=== PATIENT | female | born 1995 | race Caucasian/White ===

== ENCOUNTER 2023-11-13 23:10 | Emergency (ER) | payer BC, MEDICAID ==
[~2023-11-13] VITALS: Ht 162.6 cm; Wt 70.0 kg
[2023-11-13] MEDS: DIPHENHYDRAMINE 50MG/ML VIAL IM ONE (23:30)
[2023-11-13] MEDS: HALOPERIDOL LACTATE 5MG/ML VIAL IM ONE (23:30)
[2023-11-13] MEDS: LORAZEPAM 2MG/ML INJ IM ONE (23:45)
[2023-11-13] MEDS ORDERED: HALOPERIDOL LACTATE 5MG/ML VIAL IM NR (23:45)
[2023-11-14] MEDS ORDERED: MIDAZOLAM HCL 2 MG/2 ML VIAL IM ONE (00:15)
[2023-11-14] MEDS: MIDAZOLAM HCL 2 MG/2 ML VIAL IM NR (00:30)
[2023-11-14 01:31] LABS: BASOPHILS % 0.3 % (0.0-2.0); EOSINOPHILS % 0.2 % (0.0-5.0); HEMATOCRIT. 37.7 % (36.0-48.0); LYMPHOCYTES % 12.7 % (20.0-50.0); MEAN CORPUSCULAR HEMOGLOBIN 33.1 pg (28.0-32.0); MEAN CORPUSCULAR HGB CONC 34.4 g/dL (31.0-37.0); MEAN CORPUSCULAR VOLUME 96.4 fL (81.0-99.0); MEAN PLATELET VOLUME 7.6 fl (7.4-10.4); MONOCYTES % 9.4 % (2.0-8.0); NEUTROPHILS % 77.4 % (40.0-76.0); PLATELET 310 x1000/uL (130-400); RED BLOOD CELL COUNT 3.92 mill/uL (4.2-5.4); RED CELL DISTRIBUTION WIDTH 12.6 % (11.6-14.6); WHITE BLOOD COUNT 9.1 x1000/uL (4.5-11.0)
[2023-11-14 01:37] LABS: CHLORIDE 106 mEq/L (98-107); POTASSIUM 3.5 mEq/L (3.5-5.1); SODIUM 139 mEq/L (136-145)
[2023-11-14 01:38] LABS: CALCIUM 9.2 mg/dL (8.7-10.4); CARBON DIOXIDE 26 mEq/L (21-32)
[2023-11-14 01:42] LABS: HCG SCREEN NEGATIVE
[2023-11-14 01:43] LABS: CREATININE 0.7 mg/dL (0.6-1.0); GLUCOSE 96 mg/dL (70-105)
[2023-11-14 01:44] LABS: UREA NITROGEN BLOOD 10 mg/dL (9-23)
[2023-11-14 01:45] LABS: ACETAMINOPHEN < 2 ug/mL (10-30); ALANINE AMINOTRANSFERASE 12 IU/L (10-49); ALBUMIN 4.6 g/dL (3.2-4.8); ASPARTATE AMINOTRANSFERASE 25 IU/L (<34)
[2023-11-14 01:46] LABS: BILIRUBIN DIRECT 0.3 mg/dL (<=3.0); BILIRUBIN TOTAL 0.8 mg/dL (0.1-1.0); PROTEIN TOTAL 6.8 g/dL (6.0-8.3)
[2023-11-14 01:57] LABS: CLARITY URINE CLOUDY (CLEAR); COLOR URINE DARK YELLOW (YELLOW); GLUCOSE URINE NEGATIVE (NEGATIVE); KETONES URINE 1+ (NEGATIVE); LEUKOCYTE ESTERASE URINE TRACE (NEGATIVE); NITRITE URINE NEGATIVE (NEGATIVE); OCCULT BLOOD URINE NEGATIVE (NEGATIVE); PROTEIN URINE 1+ (NEGATIVE); SPECIFIC GRAVITY URINE 1.027 (1.005-1.030)
[2023-11-14 01:57] LABS: ETHANOL BLOOD < 10 mg/dL (<10)
[2023-11-14 02:09] LABS: *AMPHETAMINES SCREEN URINE NEGATIVE (NEGATIVE); *BARBITURATES SCREEN URINE NEGATIVE (NEGATIVE); *BENZODIAZEPINES SCREEN URINE PRESUMPTIVE POSITIVE (NEGATIVE); *COCAINE SCREEN URINE NEGATIVE (NEGATIVE); METHADONE URINE SCREEN NEGATIVE (NEGATIVE)
[2023-11-14 02:10] LABS: CANNABINOID URINE SCREEN NEGATIVE (NEGATIVE); ECSTASY MDMA SCREEN URINE NEGATIVE (NEGATIVE); OPIATES URINE SCREEN NEGATIVE (NEGATIVE); PHENCYCLIDINE URINE SCREEN NEGATIVE (NEGATIVE)
[2023-11-14 02:38] LABS: SQUAMOUS EPITHELIAL CELL URINE 1+ /lpf (RARE/1+)
[2023-11-14 02:41] LABS: RBC URINE 0-2 /hpf (0-2); WBC URINE 0-2 /hpf (0-2)
[2023-11-14 02:43] LABS: BACTERIA URINE 2+
[2023-11-14] MEDS: RISPERIDONE 1MG TABLET PO SCH (15:00)
[2023-11-14] MEDS: LITHIUM CARBONATE 150 MG CAPSULE PO SCH (15:00)
[2023-11-14] MEDS: HALOPERIDOL LACTATE 5MG/ML VIAL IM ONE (18:55)
[2023-11-14] MEDS: MIDAZOLAM HCL 2 MG/2 ML VIAL IM ONE (18:55)
[2023-11-15 08:58] VITALS: O2SAT 99
[2023-11-15] MEDS: HALOPERIDOL LACTATE 5MG/ML VIAL IM ONE (08:58)
[2023-11-15] MEDS: MIDAZOLAM HCL 2 MG/2 ML VIAL IM ONE (08:58)
[2023-11-15 10:00] VITALS: BP 123/62; PULSE 97; RESP 18; TEMP 98.1
== END 2023-11-15 10:39 ==
LOC: EDBD 23:10 → ER 23:10
DX: F23 Brief psychotic disorder (principal); R45.1 Restlessness and agitation
CPT/HCPCS: 80076; 80305; 80048; 81003; 80307; 80329; 80320; 84703; 85025; 36415; 96372; 99291; J1200; J1630 ×3; J2060; J2250 ×2; G0480